=== PATIENT | female | born 1945 | race Caucasian/White ===

== ENCOUNTER → 2017-01-04 | Outpatient (CLI) | payer MEDICARE, OTHER | LOC: RAD 12:10 | PROVIDERS: ATTEND Surgery | DX: R10.9 Unspecified abdominal pain (principal) | CPT/HCPCS: 74177; 82565 ==

== ENCOUNTER → 2019-12-12 | Outpatient (CLI) | payer MEDICARE, OTHER ==
[~2019-12-12] MED LIST: DIPHENHYDRAMINE HCL 25 MG CAPSULE ONE
--- NOTE | 2019-12-12 15:23 | RADIOLOGY REPORT (SQ) ---
EXAM DESCRIPTION: CT ABD/PELVIS WITH IV ORAL COMPLETED DATE/TIME: 12/12/2019 2:46 pm REASON FOR STUDY: R10.32 LEFT LOWER QUADRANT PAIN R10.32 LEFT LOWER QUADRANT PAIN COMPARISON: 01/04/2017 TECHNIQUE: CT scan of the abdomen and pelvis performed using helical scanning technique with dynamic intravenous contrast injection. No oral contrast. Images reviewed with lung, soft tissue, and bone windows. Reconstructed coronal and sagittal MPR images reviewed. Delayed images for evaluation of the urinary system also acquired. All images stored on PACS. All CT scanners at this facility use dose modulation, iterative reconstruction, and/or weight based d osing when appropriate to reduce radiation dose to as low as reasonably achievable (ALARA). [facility]: Dose Right [facility]: CareDose [facility]: Dose Right [facility]: Teradose 4D [facility]: BodyMedia CONTRAST TYPE AND DOSE: contrast/concentration: Isovue 350.00 mg/ml; Total Contrast Delivered: 100.0 ml; Total Saline Delivered: 72.0 ml RENAL FUNCTION: Creatinine 1.0 RADIATION DOSE: CT Rad equipment meets quality standard of care and radiation dose reduction techniq ues were employed. CTDIvol: 24.6 - 24.8 mGy. DLP: 2605 mGy-cm.. LIMITATIONS: None. FINDINGS: LOWER CHEST: No significant findings. No nodules or infiltrates. LIVER: Normal size. No masses. No dilated ducts. SPLEEN: Normal size. No focal lesions. PANCREAS: No masses. No significant calcifications. No adjacent inflammation or peripancreatic fluid collections. Pancreatic duct not dilated. GALLBLADDER: Surgically absent. ADRENAL GLANDS: No significant masses or asymmetry. RIGHT KIDNEY AND URETER: No solid masses. No significant calcifications. No hydronephrosis or hyd roureter. LEFT KIDNEY AND URETER: No solid masses. No significant calcifications. No hydronephrosis or hydr oureter. AORTA AND VESSELS: No aneurysm. No dissection. Renal arteries, SMA, celiac without stenosis. RETROPERITONEUM: No retroperitoneal adenopathy, hemorrhage or masses. BOWEL AND PERITONEAL CAVITY: Evidence of prior gastric bypass. Unchanged appearance of the small bow el loops within the left abdomen with mild swirling of the mesenteric compared to exam dated 2017. N o evidence of high-grade obstruction. Contrast traverses to the level of the colon. No focal bowel wall thickening. APPENDIX: Not identified. PELVIS: No mass. No free fluid. Normal bladder. ABDOMINAL WALL: No masses. No hernias. BONES: No significant or acute findings. Serpiginous thoracolumbar curvature. OTHER: No other significant finding. IMPRESSION: 1. No evidence of acute intra-abdominal/pelvic process. 2. Evidence of prior cholecystectomy and gastric bypass stable post surgical change. TECHNICAL DOCUMENTATION: JOB ID: [id number] Quality ID # [id number]: Final reports with documentation of one or more dose reduction techniques (e.g., Au tomated exposure control, adjustment of the mA and/or kV according to patient size, use of iterative reconstruction technique) 2010 [employer]- All Rights Reserved Reading location - IP/workstation name: [email or web address]
== END ==
LOC: RAD 13:36
PROVIDERS: ATTEND Internal Medicine Gastroenterology
DX: R10.32 Left lower quadrant pain (principal); R14.0 Abdominal distension (gaseous); R11.0 Nausea
CPT/HCPCS: 82565; 74177; A9270

== ENCOUNTER → 2020-08-10 | Outpatient (CLI) | payer MEDICARE, OTHER ==
--- NOTE | 2020-08-10 10:35 | RADIOLOGY REPORT (SQ) ---
EXAM DESCRIPTION: UGI W/ SINGLE CONTRAST IMAGES COMPLETED DATE/TIME: 08/10/2020 9:55 am REASON FOR STUDY: LUQ PAIN R10.12 LEFT UPPER QUADRANT PAIN R11.10 VOMITING, UNSPECIFIED COMPARISON: CT abdomen and pelvis 12/12/2019 TECHNIQUE: Under fluoroscopic guidance, patient ingested thin barium. Fluoroscopic spot images and r outine radiographic images acquired and stored on PACS. 12 MM BARIUM TABLET GIVEN: Yes. Delay in passage at the distal esophagus due to esophageal dysmotility. LIMITATIONS: None. FLUOROSCOPY TIME: FLUORO TIME: 3.9 minutes of fluoroscopy was used. 29 images saved to PACS. FINDINGS: NEUROMUSCULAR COORDINATION OF SWALLOW: Normal. No aspiration. ESOPHAGEAL MOTILITY: Weak primary peristalsis. Stasis of barium within the esophagus in the upright position. ESOPHAGEAL MUCOSA: No ulcerations or masses seen. Mild esophageal dilatation. GASTRO-ESOPHAGEAL JERARDO CTION: Tiny hiatal hernia seen. Free-flowing gastroesophageal reflux is noted. 12 mm barium tablet remained in the distal esophagus for extended period time but did pass into the gastric pouch after m ultiple drinks of water. Distal esophagus sphincter occasionally opens wide to allow passage of moe um, however there was spasm throughout most of the exam STOMACH: Status post gastric bypass with normal appearing gastric pouch. Gastrojejunal anastomosis a ppears intact without evidence of stricture. The efferent limb of the Stacy-en-Y gastric bypass fills with barium immediately. PROXIMAL JEJUNUM: Postoperative changes otherwise normal mucosal pattern. No dilatation, segmentation , strictures or masses. NON-GI TRACT STRUCTURES: No significant finding. OTHER: No other significant finding. IMPRESSION: 1. ESOPHAGEAL DYSMOTILITY WITH MILD DILATATION AND STASIS OF CONTRAST WITHIN THE ESOPHA MELINA, EVEN IN AN UPRIGHT POSITION. LIMITED RELAXATION OF THE DISTAL ESOPHAGEAL SPHINCTER 2. STATUS POST GASTRIC BYPASS WITHOUT EVIDENCE OF COMPLICATION. GASTRO JEJUNAL ANASTOMOSIS APPEARS PATENT WITHOUT EVIDENCE OF STRICTURE. 3. FREE-FLOWING GASTROESOPHAGEAL REFLUX. COMMENT: Quality ID [id number]: Final reports for procedures using fluoroscopy that document radiation exp osure indices, or exposure time and number of fluorographic images (if radiation exposure indices are not available) TECHNICAL DOCUMENTATION: JOB ID: [id number] 2010 [employer]- All Rights Reserved Reading location - IP/workstation name: [email or web address] [id number]
== END ==
LOC: RAD 08:35
PROVIDERS: ATTEND Internal Medicine Gastroenterology
DX: R10.12 Left upper quadrant pain (principal); R11.10 Vomiting, unspecified
CPT/HCPCS: 74240